=== PATIENT | male | born 1995 | race Two or more races ===

== ENCOUNTER 2017-03-19 16:25 | Emergency (ER) | payer SELFPAY ==
[~2017-03-19] VITALS: Ht 172.7 cm; Wt 99.0 kg
[~2017-03-19 16:25] MED LIST: ONDA4TAB10 SL
[2017-03-19 16:44] VITALS: BP 116/99
[2017-03-19] MEDS ORDERED: HYDROcodone/APAP 5/325MG 1 TAB TABLET PO ONE (17:10)
[2017-03-19] MEDS ORDERED: IBUPROFEN 600 MG TABLET. PO ONE (18:00)
--- NOTE | 2017-03-19 18:07 | PHYS DOC ---
Past History Past Medical History: Asthma, Migraines Past Surgical History: Other Alcohol Use: None Drug Use: None Adult General Chief Complaint Chief Complaint: WRIST PAIN HPI HPI Patient is a 22 year old male who presents with right wrist injury. Patient reports a mechanical fall onto outstretched hand this morning. Denies any other injuries. No head trauma or loss of consciousness. He is right handed. Review of Systems Review of Systems Constitutional: Denies fever or chills Respiratory: Denies cough or shortness of breath Cardiovascular: Denies chest pain GI: Denies abdominal pain Musculoskeletal: Reports wrist pain Integument: Denies Neurologic: Denies headache Current Medications Current Medications Current Medications Medications (Trade) Dose Ordered Sig/Jazmyn Start Time Stop Time Status Last Admin Dose Admin Acetaminophen/ Hydrocodone Bitart (Lortab 5/325) 2 tab 1X ONCE 03/19/17 17:10 03/19/17 17:11 DC 03/19/17 17:05 2 TAB Ibuprofen (Motrin) 600 mg 1X ONCE 03/19/17 18:00 03/19/17 18:02 DC Allergies Allergies Allergies Coded Allergies Type Severity Reaction Last Updated Verified No Known Drug Allergies 01/06/15 No Physical Exam Physical Exam Constitutional: Well developed, well nourished, no acute distress, non-toxic appearance. HENT: Normocephalic, atraumatic, bilateral external ears normal, oropharynx moist, nose normal. Eyes: conjunctiva normal, no discharge. Cardiovascular: no edema. Lungs & Thorax: no respiratory distress. Abdomen: nondistended. Skin: Warm, dry, no erythema, no rash. Extremities: Right wrist mild generalized swelling without deformity, generalized tenderness over distal radius and ulna, limited flexion and extension secondary to pain, no hand or elbow tenderness, no scaphoid tenderness , radial pulse 2+, radial/median/ulnar nerve sensory and motor function intact. Neurologic: Alert and oriented X 3 Current Patient Data Vital Signs Vital Signs Date Time Temp Pulse Resp B/P (MAP) Pulse Ox O2 Delivery O2 Flow Rate FiO2 03/19/17 17:05 20 98 Room Air 03/19/17 16:44 97.8 78 EKG EKG [] Radiology/Procedures Radiology/Procedures X-ray right wrist: Interpreted by me: No fracture or dislocation [] Course & Med Decision Making Course & Med Decision Making Pertinent Labs and Imaging studies reviewed. (See chart for details) The patient visits with wrist injury. Gave pain medication. X-ray negative for fracture. Provided Amanuel wrap and ice pack. Recommend rest, ice, elevation, ibuprofen every 8 hours for pain. Follow-up as needed with primary care physician. Return to the emergency department for neurovascular compromise or otherwise worsening condition. [] Dragon Disclaimer Dragon Disclaimer This chart was dictated in whole or in part using Voice Recognition software in a busy, high-work load, and often noisy Emergency Department environment. It may contain unintended and wholly unrecognized errors or omissions. Departure Departure: Impression: Primary Impression: Wrist sprain Disposition: HOME, SELF-CARE Condition: STABLE Referrals: PCP,NO (PCP) Patient Instructions: Wrist Sprain with [facility] Additional Instructions: You were seen in the emergency department today for wrist injury. No fracture was seen. Likely soft tissue injury. Please rest, use Amanuel wrap, apply ice, take ibuprofen for pain. Follow-up with primary care physician for additional concerns. XANDER ORDOÑEZ MD Mar 19, 2017 18:07
--- NOTE | 2017-03-20 09:21 | RAD ---
Right wrist, 3 views, 03/19/2017: History: Fall, wrist pain No fracture or dislocation is identified. There is mild soft tissue swelling. IMPRESSION: No acute bony abnormality is detected.
== END 2017-03-19 18:29 | disposition home or self-care (01) ==
LOC: ER 16:25
DX: S63.501A Unspecified sprain of right wrist, initial encounter (principal); J45.909 Unspecified asthma, uncomplicated; G43.909 Migraine, unspecified, not intractable, without status migrainosus; W19.XXXA Unspecified fall, initial encounter; Y93.89 Activity, other specified; Y99.8 Other external cause status; Y92.89 Other specified places as the place of occurrence of the external cause
CPT/HCPCS: 73110; 99284-25